=== PATIENT | female | born 1975 | race Caucasian/White ===

== ENCOUNTER → 2017-02-03 | Outpatient (CLI) | payer MEDICAID ==
[2017-02-03 11:01] LABS: Basophils % (A) 1 %; CH 27.9; CHCM 33.6; Eosinophils # (A) 0.1 k/uL (0-0.7); Eosinophils % (A) 1 %; HCT 37.4 % (34.0-46.0); HDW 2.76; HGB 12.4 gm/dL (11.4-16.0); Luc # (Auto) 0.15; Luc % (Auto) 3; Lymphocytes # (A) 1.4 k/uL (1.0-4.8); Lymphocytes % (A) 24 %; MCH 27.8 pg (25.0-35.0); MCHC 33.3 g/dL (31.0-37.0); MCV 83.7 fL (80.0-100.0); Mean Platelet Volume 7.4; Monocytes # (A) 0.3 k/uL (0-1.0); Monocytes % (A) 6 %; Neutrophils % (A) 67 %; RBC 4.47 m/uL (3.80-5.40); RDW 14.1 % (11.5-15.5); WBC (Perox) 6.56
[2017-02-03 11:23] LABS: ALT 25 U/L (9-52); AST 18 U/L (14-36); Alkaline Phosphatase 71 U/L (38-126); Anion Gap 9 mmol/L; Blood Urea Nitrogen 15 mg/dL (7-17); Calcium 9.2 mg/dL (8.4-10.2); Carbon Dioxide 24 mmol/L (22-30); Chloride 108 mmol/L (98-107); Cholesterol 157 mg/dL (<200); Glucose 81 mg/dL (74-99); HDL Cholesterol 46 mg/dL (40-60); Magnesium 2.2 mg/dL (1.6-2.3); Non-African American GFR(MDRD) >60 (>60 ml/min/1.73 sqM); Potassium 4.1 mmol/L (3.5-5.1); Sodium 141 mmol/L (137-145); Total Protein 7.6 g/dL (6.3-8.2); Triglycerides 51 mg/dL (<150)
[2017-02-03 13:16] LABS: Hemoglobin A1C 4.9 % (4.2-6.1)
== END | disposition home or self-care (01) ==
LOC: LABWHC1 10:02
PROVIDERS: ATTEND Family Medicine
DX: Z00.00 Encounter for general adult medical examination without abnormal findings (principal)
CPT/HCPCS: 36415; 80053; 80061; 82306; 83036; 83735; 84443; 85025

== ENCOUNTER → 2017-08-25 | Outpatient (CLI) | payer MEDICAID ==
[2017-08-25 15:58] LABS: Anion Gap 11 mmol/L; Blood Urea Nitrogen 22 mg/dL (7-17); Calcium 9.4 mg/dL (8.4-10.2); Carbon Dioxide 26 mmol/L (22-30); Chloride 106 mmol/L (98-107); Glucose 82 mg/dL (74-99); Potassium 4.4 mmol/L (3.5-5.1); Sodium 143 mmol/L (137-145)
== END | disposition home or self-care (01) ==
LOC: LABWHC1 14:36
PROVIDERS: ATTEND Family Medicine
DX: E55.9 Vitamin D deficiency, unspecified (principal); I10 Essential (primary) hypertension; Z80.9 Family history of malignant neoplasm, unspecified
CPT/HCPCS: 36415; 80048; 82306

== ENCOUNTER → 2017-09-28 | Outpatient (CLI) | payer MEDICAID ==
[2017-09-28 16:26] LABS: Basophils % (A) 1 %; Eosinophils # (A) 0.1 k/uL (0-0.7); Eosinophils % (A) 2 %; HCT 37.2 % (34.0-46.0); HGB 11.8 gm/dL (11.4-16.0); Lymphocytes # (A) 1.9 k/uL (1.0-4.8); Lymphocytes % (A) 31 %; MCH 27.2 pg (25.0-35.0); MCHC 31.7 g/dL (31.0-37.0); Mean Platelet Volume 7.2; Monocytes # (A) 0.4 k/uL (0-1.0); Monocytes % (A) 6 %; Neutrophils # (A) 3.5 k/uL (1.3-7.7); Neutrophils % (A) 57 %; Platelet Count 310 k/uL (150-450); RBC 4.32 m/uL (3.80-5.40); RDW 14.3 % (11.5-15.5); WBC 6.1 k/uL (3.8-10.6)
== END | disposition home or self-care (01) ==
LOC: LABPAT 15:52
PROVIDERS: ATTEND Obstetrics & Gynecology Obstetrics
DX: Z01.812 Encounter for preprocedural laboratory examination (principal); Z01.818 Encounter for other preprocedural examination; I10 Essential (primary) hypertension; N92.0 Excessive and frequent menstruation with regular cycle
CPT/HCPCS: 36415; 85025; 93005

== ENCOUNTER 2017-10-05 08:26 | Day surgery (SDC) | payer MEDICAID ==
[2017-09-28 09:48] VITALS: BMI 36.9
--- NOTE | 2017-10-04 16:03 | P.HPOB ---
History of Present Illness H&P Date: 10/04/17 Chief Complaint: menorrhagia This is a 42yo female G0 that presents with c/o HMB. she notes her menses to be q 28 days lasting 5 days with a heavy flow. + clots. normal pelvic ultrasound obtained on August Review of Systems Constitutional: Reports fatigue Cardiovascular: Reports high blood pressure Respiratory: Denies cough, Denies dyspnea Gastrointestinal: Denies constipation, Denies diarrhea Genitourinary: Reports menorrhagia Menstruation: Reports menses 1-7 days Past Medical History Past Medical History: Hypertension, Musculoskeletal Disorder Additional Past Medical History / Comment(s): Hx of gall stones, kidney stones , back pain/herniated disc, Menorrhagia History of Any Multi-Drug Resistant Organisms: None Reported Past Surgical History: Orthopedic Surgery Additional Past Surgical History / Comment(s): rt knee arthroscopy, lasik surgery eyes Past Anesthesia/Blood Transfusion Reactions: No Reported Reaction Smoking Status: Never smoker - Past Family History Mother Family Medical History: No Reported History Medications and Allergies Home Medications Medication Instructions Recorded Confirmed Type Cyclobenzaprine [Flexeril] 10 mg PO TID PRN 05/31/15 09/28/17 History Ibuprofen [Motrin] 800 mg PO Q8HR PRN #30 tab 05/31/15 09/28/17 Rx Vitamin B Complex 1 each PO DAILY 02/21/16 09/28/17 History Lisinopril [Zestril] 10 mg PO DAILY 09/28/17 09/28/17 History Magnesium 200 mg PO DAILY 09/28/17 09/28/17 History Allergies Allergy/AdvReac Type Severity Reaction Status Date / Time No Known Allergies Allergy Verified 09/28/17 09:39 Exam Osteopathic Statement: *. No significant issues noted on an osteopathic structural exam other than those noted in the History and Physical/Consult. - OBG Physical Exam Abdomen: bowel sounds normal Cervix: normal in appearence no lesions Uterus: normal size Adnexa: both: normal Assessment and Plan (1) Menorrhagia Status: Acute Code(s): N92.0 - EXCESSIVE AND FREQUENT MENSTRUATION WITH REGULAR CYCLE SNOMED Code(s): 005016778 Plan: Plan H DC EA. this is discussed in detail and questions answered informed consent obtained Time with Patient: Less than 30
[~2017-10-05 08:26] MED LIST: DEXAMETHASONE SOD PHOSPHATE 10 MG/ML 1 ML VIAL IV ONE; LACTATED RINGERS 1,000 ML IV SCH; MIDAZOLAM 2 MG/2 ML VIAL IV PRN; MORPHINE SULFATE 4 MG/ML SYRINGE IV PRN; ONDANSETRON 4 MG/2 ML VIAL IVP ONE; Pre Op ABX Message 1 EACH MISC MISCELLANE ONE; SCOPOLAMINE 1.5MG/72HR PATCH TRANSDERM ONE
[2017-10-05] MEDS ORDERED: LIDOCAINE 1% 20 ML VIAL (10MG/ML) FOR IV START INTRADERMA ONE (09:44)
[2017-10-05 09:46] VITALS: RESP 16
[2017-10-05] MEDS ORDERED: MIDAZOLAM 2 MG/2 ML VIAL ONE (10:22)
[2017-10-05] MEDS ORDERED: KETOROLAC 30 MG/ML 1 ML VIAL ONE (10:22)
[2017-10-05] MEDS ORDERED: fentaNYL (PF) 50 MCG/ML 2 ML AMP ONE (10:22)
[2017-10-05] MEDS ORDERED: LIDOCAINE 1% INJ 10MG/ML (20 ML MDV) ONE (10:22)
[2017-10-05] MEDS ORDERED: PROPOFOL 10 MG/ML 20 ML VIAL IV ONE (10:22)
--- NOTE | 2017-10-05 10:50 | P.OP ---
Date of Procedure: 10/05/17 Preoperative Diagnosis: Menorrhagia Postoperative Diagnosis: Same plus endometrial polyps Procedure(s) Performed: Hysteroscopy, dilation and curettage, endometrial ablation, NovaSure Anesthesia: MAC Surgeon: Oliva Christina Estimated Blood Loss (ml): 5 IV fluids (ml): 450 Urine output (ml): 100 Pathology: other (Endometrial curettings) Condition: stable Disposition: PACU Indications for Procedure: Heavy menstrual bleeding Operative Findings: Normal appearing and intraoral cavity with numerous endometrial polyps Description of Procedure: Patient was taken to the operating room and general anesthesia was obtained by the anesthesia department. She was then prepped and draped in normal sterile fashion in the dorsal lithotomy position went over There was any straining the bladder of clear yellow urine. A weighted speculum was placed in the posterior vaginal vault the anterior lip of the cervix was visualized and grasped with a single-tooth tenaculum. The endocervical canal was then dilated to 18-[place]ank[place] hysteroscope was placed through the cervix and for the endometrial cavity the above-noted findings were visualized. A sharp curettage was then performed until a gritty texture was noted in all 4 quadrants of the uterine cavity. The NovaSure device was then opened and set to the patient's uterine measurements 4 cm of length, 4.6, power of 101, total time of 118 seconds. After the cycle was complete the NovaSure device was removed without difficulty, in addition the patient did pass cavity assessment prior to the ablation procedure. Counts are correct 2 patient tolerated procedure well and was taken to room awake and in stable condition
[2017-10-05 11:02] VITALS: TEMP 98.2
[2017-10-05 11:48] VITALS: BP 161/90; PULSE 68
== END 2017-10-05 12:12 | disposition home or self-care (01) ==
LOC: OR 08:26
PROVIDERS: ATTEND Obstetrics & Gynecology Obstetrics
DX: N84.0 Polyp of corpus uteri (principal); N92.0 Excessive and frequent menstruation with regular cycle; I10 Essential (primary) hypertension; Z79.899 Other long term (current) drug therapy
CPT/HCPCS: 81025; 88305; 58563; J2250; J1100; J2405; J2001; J3010; J1885; J2704

== ENCOUNTER → 2017-10-14 | Outpatient (CLI) | payer MEDICAID ==
--- NOTE | 2017-10-15 14:06 | MM ---
Reason for exam: screening (asymptomatic). Last mammogram was performed 1 year and 5 months ago. History: Family history of breast cancer in maternal grandmother. Physical Findings: A clinical breast exam by your physician is recommended on an annual basis and results should be correlated with mammographic findings. MG 3D Screening Mammo W/Cad Bilateral CC and MLO view(s) were taken. Prior study comparison: May 12, 2016, bilateral MG 3d screening mammo w/cad. June 21, 2012, bilateral digital screening mammo w/CAD. The breast tissue is heterogeneously dense. This may lower the sensitivity of mammography. No suspicious abnormality. No significant changes when compared with prior studies. ASSESSMENT: Negative, BI-RAD 1 RECOMMENDATION: Routine screening mammogram of both breasts in 1 year.
== END | disposition home or self-care (01) ==
LOC: RADMAMWWP 09:13
PROVIDERS: ATTEND Obstetrics & Gynecology Obstetrics
DX: Z12.31 Encounter for screening mammogram for malignant neoplasm of breast (principal)
CPT/HCPCS: 77063; 77067

== ENCOUNTER → 2018-01-27 | Outpatient (CLI) | payer MEDICAID ==
[2018-01-27 15:06] LABS: HCT 38.9 % (34.0-46.0); HGB 13.2 gm/dL (11.4-16.0); MCH 28.3 pg (25.0-35.0); MCHC 33.9 g/dL (31.0-37.0); MCV 83.6 fL (80.0-100.0); Mean Platelet Volume 7.2; Platelet Count 273 k/uL (150-450); RBC 4.66 m/uL (3.80-5.40); RDW 15.1 % (11.5-15.5); WBC 7.4 k/uL (3.8-10.6)
[2018-01-27 15:23] LABS: Appearance,Urine Clear (Clear); Bilirubin,Urine Negative (Negative); Blood,Urine Negative (Negative); Color,Urine Yellow; Glucose,Urine (UA) Negative (Negative); Ketones,Urine 1+ (Negative); Leukocyte Esterase,Urine Negative (Negative); Nitrite,Urine Negative (Negative); PH, Urine 5.5 (5.0-8.0); Protein,Urine Negative (Negative); Specific Gravity,Urine 1.022 (1.001-1.035); Urobilinogen,Urine <2.0 mg/dL (<2.0)
[2018-01-27 15:25] LABS: ALT 36 U/L (9-52); AST 22 U/L (14-36); Albumin 4.5 g/dL (3.5-5.0); Alkaline Phosphatase 68 U/L (38-126); Anion Gap 13 mmol/L; Blood Urea Nitrogen 14 mg/dL (7-17); Calcium 9.6 mg/dL (8.4-10.2); Carbon Dioxide 24 mmol/L (22-30); Chloride 105 mmol/L (98-107); Cholesterol 171 mg/dL (<200); Glucose 83 mg/dL (74-99); HDL Cholesterol 58 mg/dL (40-60); LDL Cholesterol,Calculated 101 mg/dL (0-99); Potassium 4.3 mmol/L (3.5-5.1); Sodium 142 mmol/L (137-145); Total Bilirubin 0.8 mg/dL (0.2-1.3); Total Protein 7.5 g/dL (6.3-8.2); Triglycerides 59 mg/dL (<150)
[2018-01-27 15:41] LABS: T4, Free (Free Thyroxine) 1.57 ng/dL (0.78-2.19)
== END | disposition home or self-care (01) ==
LOC: LABWHC1 14:41
PROVIDERS: ATTEND Family Medicine
DX: I10 Essential (primary) hypertension (principal); E55.9 Vitamin D deficiency, unspecified; E66.01 Morbid (severe) obesity due to excess calories
CPT/HCPCS: 36415; 80053; 80061; 81003; 82306; 83036; 84439; 84443; 85027; 87086

== ENCOUNTER → 2018-08-18 | Outpatient (CLI) | payer MEDICAID ==
[2018-08-18 15:53] LABS: Anion Gap 9.2 mmol/L (4.00-12.00); Calcium 8.9 mg/dL (8.7-10.3); Carbon Dioxide 25.8 mmol/L (21.6-31.8); Potassium 4.3 mmol/L (3.5-5.5)
== END ==
LOC: LABWHC1 10:51
PROVIDERS: ATTEND Family Medicine
DX: I10 Essential (primary) hypertension (principal); E55.9 Vitamin D deficiency, unspecified
CPT/HCPCS: 36415; 80048; 82306

== ENCOUNTER → 2019-01-13 | Outpatient (CLI) | payer MEDICAID ==
--- NOTE | 2019-01-14 13:24 | US ---
EXAMINATION TYPE: US abdomen limited DATE OF EXAM: 01/13/2019 COMPARISON: Previous exam 04/18/2014 ultrasound kidneys CLINICAL HISTORY: RUQ Pain R10.11. EXAM MEASUREMENTS: Liver Length: 14.9 cm Gallbladder Wall: 0.2 cm CBD: 0.4 cm Right Kidney: 11.8 x 3.9 x 5.1 cm Pancreas: Tail obscured by overlying bowel gas, otherwise wnl Liver: wnl Gallbladder: cholelithiasis, echogenic foci within the gallbladder are present with shadowing. There is no gallbladder wall thickening or pericholecystic fluid. Evidence for sonographic Thornton's sign: no CBD: wnl Right Kidney: wnl There is no ascites. IMPRESSION: Cholelithiasis is again noted.
== END | disposition home or self-care (01) ==
LOC: RADUSWWP 16:53
PROVIDERS: ATTEND Radiology Diagnostic Radiology
DX: K80.20 Calculus of gallbladder without cholecystitis without obstruction (principal)
CPT/HCPCS: 76705

== ENCOUNTER → 2019-01-24 | Outpatient (CLI) | payer MEDICAID ==
--- NOTE | 2019-01-24 13:52 | MM ---
Reason for exam: screening (asymptomatic). Last mammogram was performed 1 year and 3 months ago. History: Family history of breast cancer in maternal grandmother. Physical Findings: A clinical breast exam by your physician is recommended on an annual basis and results should be correlated with mammographic findings. MG 3D Screening Mammo W/Cad Bilateral CC and MLO view(s) were taken. Prior study comparison: October 14, 2017, bilateral MG 3d screening mammo w/cad. May 12, 2016, bilateral MG 3d screening mammo w/cad. The breast tissue is heterogeneously dense. This may lower the sensitivity of mammography. No suspicious abnormality on the right. Posterior depth left asymmetry on 3D views. ASSESSMENT: Incomplete: need additional imaging evaluation, BI-RAD 0 RECOMMENDATION: Special view mammogram of the left breast. If lesion persists on supplemental views, image directed ultrasound is recommended. [facility] will attempt to contact patient to return for supplemental views and ultrasound if indicated.
== END ==
LOC: RADMAMWWP 07:31
PROVIDERS: ATTEND Obstetrics & Gynecology Obstetrics
DX: Z12.31 Encounter for screening mammogram for malignant neoplasm of breast (principal); Z80.3 Family history of malignant neoplasm of breast
CPT/HCPCS: 77063; 77067

== ENCOUNTER → 2019-01-26 | Outpatient (CLI) | payer MEDICAID ==
--- NOTE | 2019-01-27 12:17 | MM ---
Reason for exam: additional evaluation requested from abnormal screening. Last mammogram was performed less than 1 month ago. History: Family history of breast cancer in maternal grandmother. Physical Findings: Nurse did not find any significant physical abnormalities on exam. MG 3D Work Up W/Cad LT Spot compression CC and ML view(s) were taken of the left breast. Prior study comparison: January 24, 2019, bilateral MG 3d screening mammo w/cad. October 14, 2017, bilateral MG 3d screening mammo w/cad. The breast tissue is heterogeneously dense. This may lower the sensitivity of mammography. The previously seen abnormality resolves on additional views and appears as fibroglandular tissue compatible with summation. These results were verbally communicated with the patient and result sheet given to the patient on 01/26/19. ASSESSMENT: Benign, BI-RAD 2 RECOMMENDATION: Return to routine screening mammogram schedule for both breasts.
== END | disposition home or self-care (01) ==
LOC: RADMAMWWP 13:38
PROVIDERS: ATTEND Obstetrics & Gynecology Obstetrics
DX: R92.8 Other abnormal and inconclusive findings on diagnostic imaging of breast (principal)
CPT/HCPCS: 77061; 77065

== ENCOUNTER → 2019-02-21 | Outpatient (CLI) | payer MEDICAID ==
[2019-02-21 12:02] LABS: Appearance,Urine Cloudy (Clear); Bacteria,Urine Rare /hpf; Bilirubin,Urine Negative (Negative); Blood,Urine Small (Negative); Color,Urine Yellow; Glucose,Urine (UA) Negative (Negative); Ketones,Urine Negative (Negative); Leukocyte Esterase,Urine Moderate (Negative); Mucus,Urine Many /hpf; Nitrite,Urine Negative (Negative); PH, Urine 5.5 (5.0-8.0); Protein,Urine Trace (Negative); RBC,Urine 7 /hpf (0-5); Specific Gravity,Urine 1.028 (1.001-1.035); Squamous Epithelial Cell,Urine 12 /hpf (0-4); Urobilinogen,Urine <2.0 mg/dL (<2.0); WBC,Urine 9 /hpf (0-5)
[2019-02-21 16:30] LABS: ALT 17 U/L (8-44); AST 16 U/L (13-35); African American GFR (CKD) 105.4 (60.0-200.0); Albumin/Globulin Ratio 1.64 (1.60-3.17); Alkaline Phosphatase 72 U/L (41-126); BUN/Creat Ratio 16.25 Ratio (12.00-20.00); Calcium 9.3 mg/dL (8.7-10.3); Carbon Dioxide 25.9 mmol/L (21.6-31.8); Chloride 108 mmol/L (96-109); Cholesterol 163 mg/dL (0-200); Globulin 2.5 g/dL (1.6-3.3); Glucose 91 mg/dL (70-110); Potassium 4.2 mmol/L (3.5-5.5); Sodium 142 mmol/L (135-145); Total Bilirubin 0.5 mg/dL (0.3-1.2); Total Protein 6.6 g/dL (6.2-8.2); Triglycerides <50.0 mg/dL (0.0-149.0); VLDL Calculation 9.98 mg/dL (5.00-40.00)
[2019-02-21 19:10] LABS: Hemoglobin A1C 5.2 % (4.0-6.0)
== END | disposition home or self-care (01) ==
LOC: LABWHC1 10:53
PROVIDERS: ATTEND Surgery
DX: Z00.00 Encounter for general adult medical examination without abnormal findings (principal); K81.1 Chronic cholecystitis
CPT/HCPCS: 36415; 80053; 80061; 81001; 83036; 84443

== ENCOUNTER → 2019-02-21 | Outpatient (CLI) | payer MEDICAID ==
[2019-02-21 11:49] LABS: Basophils % (A) 1 %; Eosinophils # (A) 0.1 k/uL (0-0.7); Eosinophils % (A) 3 %; HGB 13.4 gm/dL (11.4-16.0); Lymphocytes # (A) 1.4 k/uL (1.0-4.8); Lymphocytes % (A) 31 %; MCH 28.5 pg (25.0-35.0); Mean Platelet Volume 7.6; Monocytes # (A) 0.2 k/uL (0-1.0); Monocytes % (A) 5 %; Neutrophils # (A) 2.7 k/uL (1.3-7.7); Neutrophils % (A) 58 %; Platelet Count 269 k/uL (150-450); RBC 4.72 m/uL (3.80-5.40); RDW 14.8 % (11.5-15.5); WBC 4.6 k/uL (3.8-10.6)
== END | disposition home or self-care (01) ==
LOC: LABPAT 10:51
PROVIDERS: ATTEND Obstetrics & Gynecology Obstetrics
DX: Z01.818 Encounter for other preprocedural examination (principal); Z01.812 Encounter for preprocedural laboratory examination; N94.6 Dysmenorrhea, unspecified; I10 Essential (primary) hypertension; N92.0 Excessive and frequent menstruation with regular cycle
CPT/HCPCS: 85025; 86850; 86900; 86901; 87077; 87086; 87186; 93005

== ENCOUNTER 2019-02-28 06:00 | Day surgery (SDC) | payer MEDICAID ==
[2019-02-20 14:40] VITALS: BMI 39.9
--- NOTE | 2019-02-27 14:20 | HP ---
HISTORY AND PHYSICAL DATE OF SURGERY: 02/28/2019. HISTORY OF PRESENT ILLNESS: This is a very pleasant 43-year-old 0, who presents with complaints of irregular menses and severe dysmenorrhea despite having an endometrial ablation. Patient's menses are noted to be irregular and she notes severe dysmenorrhea associated with her cycle. The patient is sexually active but not on contraception. PAST MEDICAL HISTORY: 1. Gallstones. 2. Kidney stones. 3. Hypertension. PAST SURGICAL HISTORY: Arthroscopy in 1992, hysteroscopy with endometrial ablation in September of 2017 and LASIK eye surgery done in 2004. MEDICATIONS: She is on lisinopril 10 mg daily. Magnesium and vitamin D3. She has no known drug allergies. FAMILY HISTORY: Noncontributory. REPRODUCTIVE HISTORY: As stated above. She is a 0. Her menstrual cycles are noted to be irregular in nature. SOCIAL HISTORY: She denies tobacco or illicit drug use. She admits to moderate alcohol use. She denies fevers or chills. No headaches. She denies nausea, vomiting, diarrhea, constipation. She does note irregular menses and severe dysmenorrhea. She denies urinary urgency, frequency, incontinence. PHYSICAL EXAM: Noted to be stable. In general, this is a well-nourished, well-developed female in no acute distress. Her heart is noted to have a rate and rhythm. Her breathing is nonlabored and lungs are clear to auscultation bilaterally. Her abdomen is soft and nontender to palpation. Genitourinary, her external genitalia is normal for age. No discharge or lesions are noted. It is noted to be pink and rugated with no masses or lesions. The bladder is noted to be nontender. The cervix is noted to be in normal appearance with no lesions. Her uterus is nontender and mobile and approximately 8 weeks' size. There are no masses palpated. ASSESSMENT: 1. Irregular menses. 2. 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 No change in menses/dysmenorrhea. She does desire definitive treatment with hysterectomy. PLAN: She elected to treatment with robotic-assisted vaginal hysterectomy and ovarian conservation given her age. Reviewed in detail. The risks were reviewed including, but not limited to infection, bleeding, damage to bladder, bowel, or other pelvic structures. Patient states understanding and wishes to proceed. Will plan robotic vaginal hysterectomy with possible bilateral salpingo-oophorectomy should the need arise, possible procedure, possible diagnostic cystoscopy. MMODL / IJN: [id number] /
[~2019-02-28 06:00] MED LIST changes: +ACETAMINOPHEN TAB 500 MG TAB PO ONE; +HYDROmorphone 0.5 MG/0.5 ML SYRINGE IVP PRN; -LACTATED RINGERS 1,000 ML IV SCH; -MORPHINE SULFATE 4 MG/ML SYRINGE IV PRN; -ONDANSETRON 4 MG/2 ML VIAL IVP ONE; -Pre Op ABX Message 1 EACH MISC MISCELLANE ONE; +ceFAZolin 3 GM in SODIUM CHLORIDE 0.9% 100 ML IVPB ONE
[2019-02-28] MEDS: LACTATED RINGERS 1,000 ML IV SCH ×2 (06:46→12:40)
[2019-02-28] MEDS ORDERED: LIDOCAINE 1% 20 ML VIAL (10MG/ML) FOR IV START INTRADERMA ONE (06:47)
[2019-02-28] MEDS: ONDANSETRON 4 MG/2 ML VIAL IVP ONE ×2 (06:50→10:18)
[2019-02-28] MEDS ORDERED: PROPOFOL 10 MG/ML 20 ML VIAL IV ONE (07:34)
[2019-02-28] MEDS ORDERED: MIDAZOLAM 2 MG/2 ML VIAL ONE (07:34)
[2019-02-28] MEDS ORDERED: fentaNYL (PF) 50 MCG/ML 2 ML AMP ONE (07:34)
[2019-02-28] MEDS ORDERED: HYDROmorphone (PF) 1 MG/ML ONE (07:34)
[2019-02-28] MEDS ORDERED: NEOSTIGMINE 1 MG/ML 10 ML VIAL ONE (07:34)
[2019-02-28] MEDS ORDERED: GLYCOPYRROLATE 0.2 MG/ML 2 ML VIAL ONE (07:34)
[2019-02-28] MEDS ORDERED: LIDOCAINE 1% INJ 10MG/ML (20 ML MDV) ONE (07:34)
[2019-02-28] MEDS ORDERED: ROCURONIUM BROMIDE 10 MG/ML 10 ML VIAL IV ONE (07:34)
[2019-02-28] MEDS ORDERED: Acetaminophen-Codeine 300-30mg TAB PO PRN (07:51)
[2019-02-28] MEDS ORDERED: LACTATED RINGERS 1,000 ML IV ONE ×2 (08:38)
[2019-02-28] MEDS ORDERED: BUPIVACAINE (PF) 0.25% 30 ML VIAL SQ ONE (08:47)
[2019-02-28] MEDS ORDERED: IBUPROFEN IV 800 MG in SODIUM CHLORIDE 0.9% 250 ML IV ONE (09:36)
--- NOTE | 2019-02-28 09:50 | P.OP ---
Date of Procedure: 02/28/19 Preoperative Diagnosis: Menorrhagia, dysmenorrhea, failed endometrial ablation Postoperative Diagnosis: Same plus endometriosis Procedure(s) Performed: Robotic-assisted vaginal hysterectomy with bilateral salpingectomy, diagnostic cystoscopy Anesthesia: TITUS Surgeon: Oliva Christina Woven Label Designer #1: Camila Rudolph Estimated Blood Loss (ml): 20 IV fluids (ml): 1,500 Urine output (ml): 800 Pathology: other (Uterus cervix bilateral fallopian tubes) Condition: stable Disposition: PACU Indications for Procedure: Failed endometrial ablation with increasing menorrhagia and dysmenorrhea symptoms Operative Findings: Globular uterus with endometrial implants on bilateral fallopian tubes normal ovaries bilaterally. Description of Procedure: Patient is seen in the preoperative area and informed consent is obtained. Patient is counseled on the risks of surgery including but not limited to infection, bleeding, damage to bladder, bowel, ureteric or other pelvic structures. Patient states understanding and wishes to proceed. Patient was taken back to the operating suite where general anesthesia was obtained without difficulty by the anesthesia department. She was then prepped and draped in the normal sterile fashion in the dorsal lithotomy position. Giraldo catheter was then placed under sterile technique. The endocervical canal was then dilated and a Glazeon uterine manipulator was advanced into the endometrial cavity as a means to manipulate the uterus throughout the procedure. The cervical cap was placed snugly against the cervix and all instruments were removed from the vaginal vault at this time. Patient was then turned to the patient's abdomen where approximately 2 finger breaths above the umbilicus a small skin incision is made. Through this incision the Veress needle is placed. Once the Veress needle was deemed to be in the appropriate position with a drop of CO2 pressure with insufflation of CO2 gas CO2 insufflation was allowed to occur. Proximally 3 L of gas were used to obtain pneumoperitoneum. At this time the additional port sites are placed at 10 cm lateral and 3 cm inferior to the midline port these are operative ports and placed under direct visualization. At this time the left upper quadrant therapy administrative assistant port is placed this is a 12 mm port placed under direct visualization. At this time the da Irving robot was docked in the usual fashion in the operative arms are placed in the left operative arm the monopolar scissors is placed, and the right operative arm the bipolar forceps is placed. Attention was then turned to the patient's left fallopian tube which was grasped and mesosalpinx was coagulated and transected through the uterine ovarian ligament was visualized regular distally and proximal plane divided. This continued through the broad and toward the round which was coagulated distally and proximally divided. The bladder flap was then created using sharp and blunt dissection. Attention was then turned the patient's right fallopian tube which was grasped ligament through the mesosalpinx and transected. Hemostasis was appreciated. The uterine ovarian ligament was visualized coagulated distally and proximal plane divided. This continued through the broad and toward the round which was coagulated and transected. The bladder flap from the right was then created using sharp and blunt dissection. The ascending branch of the uterine artery from the right was visualized coagulated and transected. This was then repeated on the opposite side with good hemostasis being appreciated on both sides. At this time a Ray-Brenton was placed into the abdomen is means to bluntly dissect the bladder away from the operating field. This Ray-Brenton was then removed. At this time the only remaining attachment was a vaginal attachment therefore the colpotomy incision was made in a circumferential fashion. The uterus and fallopian tubes were then delivered through the vaginal opening. The pelvis was then copiously irrigated hemostasis was appreciated and the vaginal cuff was closed with multiple [id number] sutures of 0 Vicryl. The right ureter was noted to be pulsating in a normal f ashion. The left was obscured by bowel. The vaginal cuff was inspected hemostasis was appreciated once again. All instrument and then removed and the da Irving robot was undocked in usual fashion. Attention was then turned the patient's Giraldo catheter which was removed without difficulty and a cystoscopy was performed. This was placed through the urethra and toward the bladder bladder bubbles noted both ureteral orifices were noted to be spilling clear yellow urine. A complete survey of the bladder revealed normal mucosa with no defects. Cystoscope was removed and the Giraldo catheter was then replaced. Attention was then turned to the patient's abdomen where the skin incisions were closed with 4-0 Vicryl in a subcuticular fashion. Steri-Strips and sterile dressings were applied. On inspection the patient's vaginal vault after the abdominal incisions were closed and long laceration was noted this was repaired with 3-0 Rapide. Hemostasis was appreciated after repair. All counts were correct 2 patient tolerated procedure well and is taken to recovery awake in stable condition.
[2019-02-28] MEDS ORDERED: PROMETHAZINE INJ 25 MG/ML 1 ML VIAL IVPB ONE (10:25)
[2019-02-28] MEDS ORDERED: diphenhydrAMINE 50 MG/ML 1 ML VIAL IVP ONE (10:48)
[2019-02-28 16:57] VITALS: RESP 16
[2019-02-28] MEDS: SENNOSIDES-DOCUSATE SODIUM 1 EACH TAB PO SCH (20:28)
[2019-03-01 06:50] LABS: Basophils % (A) 0 %; Eosinophils % (A) 0 %; HCT 40.5 % (34.0-46.0); HGB 12.9 gm/dL (11.4-16.0); Lymphocytes # (A) 2.8 k/uL (1.0-4.8); Lymphocytes % (A) 22 %; MCHC 31.9 g/dL (31.0-37.0); MCV 87.6 fL (80.0-100.0); Monocytes # (A) 0.8 k/uL (0-1.0); Monocytes % (A) 6 %; Neutrophils # (A) 8.9 k/uL (1.3-7.7); Neutrophils % (A) 70 %; Platelet Count 311 k/uL (150-450); RBC 4.62 m/uL (3.80-5.40); RDW 13.7 % (11.5-15.5); WBC 12.7 k/uL (3.8-10.6)
[2019-03-01] MEDS: SENNOSIDES-DOCUSATE SODIUM 1 EACH TAB PO SCH (08:08)
[2019-03-01] MEDS: Acetaminophen-Codeine 300-30mg TAB PO PRN ×2 (08:09→11:18)
[2019-03-01 08:18] VITALS: BP 138/69; PULSE 69; TEMP 97.8
--- NOTE | 2019-03-01 08:25 | P.DS ---
Providers Date of admission: 02/28/2019 Expected date of discharge: 03/01/19 Attending physician: Oliva Christina Primary care physician: Sukhwinder Benitez - Discharge Diagnosis(es) (1) Dysmenorrhea Current Visit: Yes Status: Acute (2) Menorrhagia Current Visit: No Status: Acute Hospital Course: This is a pleasant 43-year-old 0 that presented to the hospital for admission secondary to menorrhagia, dysmenorrhea and failed endometrial ablation. Patient desired definitive treatment for robotic-assisted vaginal hysterectomy. Patient was taken to the operating suite surgery was performed without difficulty. On this postop day #1 she is ambulating and voiding without difficulty. She is tolerating a regular diet without nausea or vomiting. She states her pain is well-controlled with oral Tylenol No. 3. She only notes scant vaginal bleeding. Patient Condition at Discharge: Good Plan - Discharge Summary Discharge Rx Participant: Yes New Discharge Prescriptions: No Action Lisinopril [Zestril] 10 mg PO DAILY Magnesium 200 mg PO DAILY Vit K 2,400 mcg PO DAILY Discharge Medication List Lisinopril [Zestril] 10 mg PO DAILY 09/28/17 [History] Magnesium 200 mg PO DAILY 09/28/17 [History] Vit K 2,400 mcg PO DAILY 02/20/19 [History] Follow up Appointment(s)/Referral(s): Oliva Christina DO [Doctor of Osteopathic Medicine] - 2 Weeks Patient Instructions/Handouts: Laparoscopic Hysterectomy (DC), Laparoscopic Hysterectomy (GEN)
== END 2019-03-01 11:20 | disposition home or self-care (01) ==
LOC: OR 06:00 → 4FBP 09:32 → OR 03-01 11:20
PROVIDERS: ATTEND Obstetrics & Gynecology Obstetrics
DX: N92.1 Excessive and frequent menstruation with irregular cycle (principal); N94.6 Dysmenorrhea, unspecified; D25.1 Intramural leiomyoma of uterus; N80.2 Endometriosis of fallopian tube; K80.10 Calculus of gallbladder with chronic cholecystitis without obstruction; I10 Essential (primary) hypertension; Z79.899 Other long term (current) drug therapy; Z87.442 Personal history of urinary calculi
CPT/HCPCS: 58552; S2900; 81025; 85025; 86850; 86900; 86901; 88307

== ENCOUNTER 2019-03-15 06:36 | Day surgery (SDC) | payer MEDICAID ==
[2019-03-10 09:30] VITALS: BMI 39.9
[~2019-03-15 06:36] MED LIST changes: -ACETAMINOPHEN TAB 500 MG TAB PO ONE; +HEPARIN SODIUM,PORCINE 5,000 UNIT/ML 1 ML VIAL SQ ONE; -HYDROmorphone 0.5 MG/0.5 ML SYRINGE IVP PRN; +LACTATED RINGERS 1,000 ML IV SCH; +LIDOCAINE 1% 20 ML VIAL (10MG/ML) FOR IV START INTRADERMA PRN; -MIDAZOLAM 2 MG/2 ML VIAL IV PRN; +ONDANSETRON 4 MG/2 ML VIAL IVP ONE; -SCOPOLAMINE 1.5MG/72HR PATCH TRANSDERM ONE; +fentaNYL (PF) 50 MCG/ML 2 ML AMP IV PRN
[2019-03-15] MEDS ORDERED: SCOPOLAMINE 1.5MG/72HR PATCH TRANSDERM ONE (07:05)
[2019-03-15] MEDS ORDERED: ROCURONIUM BROMIDE 10 MG/ML 10 ML VIAL IV ONE (07:38)
[2019-03-15] MEDS ORDERED: fentaNYL (PF) 50 MCG/ML 2 ML AMP ONE (07:38)
[2019-03-15] MEDS ORDERED: LIDOCAINE 1% INJ 10MG/ML (20 ML MDV) ONE (07:38)
[2019-03-15] MEDS ORDERED: NEOSTIGMINE 1 MG/ML 10 ML VIAL ONE (07:38)
[2019-03-15] MEDS ORDERED: GLYCOPYRROLATE 0.2 MG/ML 2 ML VIAL ONE (07:38)
[2019-03-15] MEDS ORDERED: PROPOFOL 10 MG/ML 20 ML VIAL IV ONE (07:38)
[2019-03-15] MEDS ORDERED: KETOROLAC 30 MG/ML 1 ML VIAL ONE (07:38)
[2019-03-15] MEDS ORDERED: MIDAZOLAM 2 MG/2 ML VIAL ONE (07:38)
[2019-03-15] MEDS ORDERED: HYDROmorphone (PF) 1 MG/ML ONE (07:38)
[2019-03-15] MEDS ORDERED: SUCCINYLCHOLINE CHLORIDE 100 MG/5 ML SYR IV ONE (07:38)
[2019-03-15] MEDS ORDERED: LIDOCAINE 0.5%-EPI 1:200,000 50 ML VIAL SQ ONE (07:43)
--- NOTE | 2019-03-15 07:44 | P.GSHP ---
History of Present Illness H&P Date: 03/15/19 Chief Complaint: chronic cholecystitis 43-year-old female with known history of gallstones. Has had intermittent attacks of abdominal pain for the last 4 years or so. Will usually last for a few hours at a time. Occurs every few weeks typically. Mild nausea but no vomiting. Ultrasound confirmed Stones with No Biliary Dilation. Recent Labs Normal. No Change in the Color of Her Skin Urine or Stool. Past Medical History Additional Past Medical History / Comment(s): gall stones, kidney stone, lower back pain radiating to rt buttocks, herniated disc, History of Any Multi-Drug Resistant Organisms: None Reported Past Surgical History: Hysterectomy, Orthopedic Surgery Additional Past Surgical History / Comment(s): rt knee arthroscopy, lasik surgery eyes Past Anesthesia/Blood Transfusion Reactions: Previous Problems w/ Anesthesia, Postoperative Nausea & Vomiting (PONV) Additional Past Anesthesia/Blood Transfusion Reaction / Comment(s): VERY NAUSEOUS AFTER HYST. Smoking Status: Never smoker - Past Family History Mother Family Medical History: No Reported History Medications and Allergies Home Medications Medication Instructions Recorded Confirmed Type Lisinopril [Zestril] 10 mg PO DAILY 09/28/17 03/15/19 History Magnesium 200 mg PO DAILY 09/28/17 03/15/19 History Vit K 2,400 mcg PO DAILY 02/20/19 03/15/19 History Allergies Allergy/AdvReac Type Severity Reaction Status Date / Time No Known Allergies Allergy Verified 03/15/19 06:48 Surgical - Exam Vital Signs Temp Pulse Resp BP Pulse Ox 98.6 F 72 16 144/81 97 03/15/19 06:54 03/15/19 06:54 03/15/19 06:54 03/15/19 06:54 03/15/19 06:54 Physical exam: General: Well-developed, well-nourished HEENT: Normocephalic, sclerae nonicteric Abdomen: Nontender, nondistended, recent scars noted Extremities: No edema Neuro: Alert and oriented Assessment and Plan (1) Chronic cholecystitis Narrative/Plan: Will proceed with laparoscopic cholecystectomy. Risks of bleeding, infection, bile leak, bile duct injury, retained common bile duct stone, trocar injury, conversion to an open procedure, hernia, anesthesia related complications were reviewed. The patient understands and wishes to proceed. Current Visit: Yes Status: Acute Code(s): K81.1 - CHRONIC CHOLECYSTITIS SNOMED Code(s): 04258174
[2019-03-15] MEDS ORDERED: LACTATED RINGERS 1,000 ML IV ONE (08:52)
[2019-03-15] MEDS ORDERED: NALOXONE 0.4 MG/ML 1 ML VIAL IV PRN (08:56)
--- NOTE | 2019-03-15 08:58 | P.OP ---
Date of Procedure: 03/15/19 Procedure(s) Performed: PREOPERATIVE DIAGNOSIS: Chronic cholecystitis POSTOPERATIVE DIAGNOSIS: Same PROCEDURE: Laparoscopic cholecystectomy SURGEON: Gwen EBL: Minimal see anesthesia record ANESTHESIA: Gen. COMPLICATIONS: None OPERATIVE PROCEDURE: The patient was brought and placed on the operating room table in the supine position. The patient was placed under general anesthesia at that time. The abdomen was prepped and draped in the usual sterile fashion. A small vertical infraumbilical incision was made. The fascia was grasped with the Anny forceps. The fascia was retracted anteriorly. The Veress needle was advanced into the peritoneal cavity. The saline drop test was normal. Insufflation took place up to 15 mmHg. A 5 mm optical trocar was advanced and the peritoneal cavity. 2 additional 5 mm trochars were placed in the right upper quadrant under direct visualization. A 12 mm trocar was advanced into the epigastric incision site. The gallbladder was retracted superiorly and laterally. The peritoneum overlying the infundibulum was bluntly dissected. The patient's cystic duct was visualized. The junction between the cystic duct common and hepatic duct was identified. The cystic duct was then divided after placement of 3 12 mm clips on the patient's side and one on the specimen side. The cystic artery was identified and clipped as well. A small vessel was seen along the gallbladder fossa and clipped as well. The gallbladder was then removed from the liver bed using electrocautery. The gallbladder was then removed from the epigastric trocar site with an Endo Catch bag. In order to remove the gallbladder the fascia needed to be lengthened along with our skin incision. The gallbladder fossa was irrigated with saline. There was no evidence of any bleeding or biliary drainage seen. The fascia at the 12 millimeter site was closed using a running 0 Vicryl stitch. The trochars were then removed. The skin at all 4 sites was closed using a 4-0 Monocryl stitch. Skin glue was utilized on the incision sites. At the end of this procedure the sponge and needle counts were correct. DISPOSITION: Stable to the recovery room
[2019-03-15 09:12] VITALS: TEMP 97.1
[2019-03-15] MEDS: HYDROmorphone 0.5 MG/0.5 ML SYRINGE IVP PRN ×2 (09:28→09:35)
[2019-03-15] MEDS ORDERED: Acetaminophen-Codeine 300-30mg TAB PO ONE (10:33)
[2019-03-15 11:48] VITALS: BP 106/65; PULSE 50; RESP 17
== END 2019-03-15 11:50 ==
LOC: OR 06:36
PROVIDERS: ATTEND Surgery
DX: K81.1 Chronic cholecystitis (principal); I10 Essential (primary) hypertension; Z79.899 Other long term (current) drug therapy; Z87.19 Personal history of other diseases of the digestive system; Z87.442 Personal history of urinary calculi; Z90.710 Acquired absence of both cervix and uterus; Z98.890 Other specified postprocedural states
CPT/HCPCS: 47562; J2250; J1644; J1100; J2710; J0690; J2405; J2001; J3010; J1885; J1170 ×2; J0330; J2704; 88304

== ENCOUNTER → 2019-08-14 | Outpatient (CLI) | payer MEDICAID ==
--- NOTE | 2019-08-15 06:28 | XR ---
EXAMINATION TYPE: XR chest 2V DATE OF EXAM: 08/14/2019 COMPARISON: NONE HISTORY: Cough for 4 days. TECHNIQUE: Frontal and lateral views of the chest are obtained. FINDINGS: There is no focal air space opacity, pleural effusion, or pneumothorax seen. The cardiac silhouette size is within normal limits. The osseous structures are intact. Cholecystectomy clips a re noted. IMPRESSION: No suspicious acute infiltrate.
== END | disposition home or self-care (01) ==
LOC: RADXRMAIN 19:32
PROVIDERS: ATTEND Family Medicine
DX: R05 Cough (principal)
CPT/HCPCS: 71046

== ENCOUNTER → 2019-09-20 | Outpatient (CLI) | payer MEDICAID ==
[2019-09-20 11:53] LABS: HGB 13.7 gm/dL (11.4-16.0); MCH 28.2 pg (25.0-35.0); MCHC 31.9 g/dL (31.0-37.0); MCV 88.6 fL (80.0-100.0); Mean Platelet Volume 7.9; Platelet Count 246 k/uL (150-450); RBC 4.85 m/uL (3.80-5.40); RDW 13.4 % (11.5-15.5); WBC 7.5 k/uL (3.8-10.6)
[2019-09-20 19:26] LABS: African American GFR (CKD) 104.7 (60.0-200.0); Anion Gap 9.1 mmol/L (4.00-12.00); Calcium 9.4 mg/dL (8.7-10.3); Carbon Dioxide 23.9 mmol/L (21.6-31.8); Non-African American GFR(CKD) 90.3 (60.0-200.0); Potassium 4.1 mmol/L (3.5-5.5)
[2019-09-20 22:12] LABS: Hemoglobin A1C 4.9 % (4.0-6.0)
== END | disposition home or self-care (01) ==
LOC: LABWHC1 11:04
PROVIDERS: ATTEND Family Medicine
DX: I10 Essential (primary) hypertension (principal); E55.9 Vitamin D deficiency, unspecified; E66.01 Morbid (severe) obesity due to excess calories
CPT/HCPCS: 36415; 80048; 82306; 83036; 85027

== ENCOUNTER 2020-04-27 04:27 | Emergency (ER) | payer MEDICAID ==
[2020-04-27 04:38] VITALS: RESP 18; TEMP 98.1
--- NOTE | 2020-04-27 05:20 | ED ---
Chest Pain HPI - General Chief Complaint: Chest Pain Stated Complaint: Chest Pain Time Seen by Provider: 04/27/20 04:32 Source: patient Mode of arrival: ambulatory - History of Present Illness Initial Comments: 's patient is a 44-year-old woman who presents to be evaluated for left-sided chest pain. The patient states that she had been awakened at approximately 3 AM by a neighbors dog that was barking. She states that she did go and yellow at the dog, and then after that noticed that she was having chest discomfort in the left side of the chest at the anterior axillary line. No associated symptoms. She states that after deciding to come emergency department, the chest pain did resolve. MD Complaint: chest pain Onset/Timin -: hour(s) Onset: during rest Pain Location: left chest Pain Radiation: none Quality: dull Consistency: now resolved Improves With: nothing Worsens With: nothing Treatments Prior to Arrival: none - Related Data Home Medications Medication Instructions Recorded Confirmed Magnesium 200 mg PO DAILY 09/28/17 03/15/19 lisinopriL [Zestril] 10 mg PO DAILY 09/28/17 03/15/19 Vit K 2,400 mcg PO DAILY 02/20/19 03/15/19 Previous Rx's Medication Instructions Recorded Acetaminophen with Codeine 1 tab PO Q4H #10 tab 03/15/19 [Tylenol w/codeine #3] Allergies Allergy/AdvReac Type Severity Reaction Status Date / Time No Known Allergies Allergy Verified 03/15/19 06:48 Review of Systems ROS Statement: Those systems with pertinent positive or pertinent negative responses have been documented in the HPI. ROS Other: All systems not noted in ROS Statement are negative. Constitutional: Denies: fever, chills Respiratory: Denies: cough, dyspnea Cardiovascular: Reports: as per HPI, chest pain. Denies: palpitations, orthopnea, edema, syncope Gastrointestinal: Denies: abdominal pain, nausea, vomiting Genitourinary: Denies: dysuria, hematuria Musculoskeletal: Denies: back pain Skin: Denies: rash Neurological: Denies: headache, weakness EKG Findings - EKG Results: EKG: interpreted by ZULEYKA, sinus rhythm (Rate 68 bpm), normal axis, normal QRS, normal ST/T, no acute changes Past Medical History Additional Past Medical History / Comment(s): gall stones, kidney stone, lower back pain radiating to rt buttocks, herniated disc, hysterectomy, pt states she had her gall bladder removed in 02/2019. History of Any Multi-Drug Resistant Organisms: None Reported Past Surgical History: Orthopedic Surgery Additional Past Surgical History / Comment(s): Right knee arthroscopy in 1992. Pt states she has also had lasic eye surgey in 2004. Past Anesthesia/Blood Transfusion Reactions: No Reported Reaction Past Psychological History: No Psychological Hx Reported Smoking Status: Never smoker Past Alcohol Use History: None Reported Past Drug Use History: None Reported - Past Family History Mother Family Medical History: No Reported History General Exam General appearance: alert, in no apparent distress Head exam: Present: atraumatic, normocephalic Eye exam: Present: normal appearance. Absent: scleral icterus, conjunctival injection ENT exam: Present: normal oropharynx Neck exam: Present: normal inspection, full ROM Respiratory exam: Present: normal lung sounds bilaterally. Absent: respiratory distress, wheezes, rales, rhonchi, stridor, chest wall tenderness, accessory muscle use Cardiovascular Exam: Present: regular rate, normal rhythm, normal heart sounds. Absent: systolic murmur, diastolic murmur, rubs, gallop GI/Abdominal exam: Present: soft. Absent: distended, tenderness, guarding, rebound, rigid, mass Extremities exam: Present: normal inspection, normal capillary refill Back exam: Present: normal inspection. Absent: CVA tenderness (R), CVA tender ness (L) Neurological exam: Present: alert Skin exam: Present: warm, dry, intact, normal color. Absent: rash Course Vital Signs 04/27/20 04/27/20 04:31 05:38 Temperature 98.1 F 98.1 F Pulse Rate 77 61 Respiratory 18 18 Rate Blood Pressure 144/83 122/70 O2 Sat by Pulse 100 97 Oximetry Disposition Clinical Impression: Chest pain Disposition: HOME SELF-CARE Condition: Good Instructions (If sedation given, give patient instructions): Chest Pain (ED) Is patient prescribed a controlled substance at d/c from ED?: No Referrals: Sukhwinder Benitez DO [Primary Care Provider] - 1-2 days
[2020-04-27 05:38] LABS: Basophils # (A) 0.1 k/uL (0-0.2); Basophils % (A) 1 %; Eosinophils # (A) 0.1 k/uL (0-0.7); Eosinophils % (A) 1 %; HCT 42.3 % (34.0-46.0); HGB 13.7 gm/dL (11.4-16.0); Lymphocytes # (A) 3.5 k/uL (1.0-4.8); Lymphocytes % (A) 33 %; MCH 28.2 pg (25.0-35.0); MCHC 32.4 g/dL (31.0-37.0); MCV 87.2 fL (80.0-100.0); Monocytes # (A) 0.7 k/uL (0-1.0); Monocytes % (A) 7 %; Neutrophils # (A) 6.1 k/uL (1.3-7.7); Neutrophils % (A) 57 %; Platelet Count 316 k/uL (150-450); RBC 4.85 m/uL (3.80-5.40); WBC 10.7 k/uL (3.8-10.6)
[2020-04-27 05:39] VITALS: BP 122/70; PULSE 61
[2020-04-27 05:50] LABS: ALT 20 U/L (4-34); AST 21 U/L (14-36); African American GFR (CKD) >90 (>60 ml/min/1.73 sqM); Albumin 3.9 g/dL (3.5-5.0); Alkaline Phosphatase 80 U/L (38-126); Anion Gap 7 mmol/L; Blood Urea Nitrogen 18 mg/dL (7-17); Calcium 9.5 mg/dL (8.4-10.2); Carbon Dioxide 25 mmol/L (22-30); Chloride 107 mmol/L (98-107); Glucose 97 mg/dL (74-99); Magnesium 2.1 mg/dL (1.6-2.3); Non-African American GFR(CKD) >90 (>60 ml/min/1.73 sqM); Potassium 3.7 mmol/L (3.5-5.1); Sodium 139 mmol/L (137-145); Total Bilirubin 0.5 mg/dL (0.2-1.3); Total Protein 6.9 g/dL (6.3-8.2)
[2020-04-27 05:54] LABS: D-Dimer 0.18 mg/L FEU (<0.60); INR 0.9 (<1.2); Partial Thromboplastin Time 23.7 sec (22.0-30.0); Prothrombin Time 9.6 sec (9.0-12.0)
--- NOTE | 2020-04-27 06:12 | XR ---
EXAMINATION TYPE: XR chest 2V DATE OF EXAM: 04/27/2020 COMPARISON: 08/14/2019 HISTORY: Chest pain TECHNIQUE: FINDINGS: Heart and mediastinum are normal. Lungs are clear. Diaphragm is normal. There are chest farhad ds. Bony thorax is intact. IMPRESSION: Normal chest. No change.
== END 2020-04-27 06:31 | disposition home or self-care (01) ==
LOC: EC 04:27
DX: R07.9 Chest pain, unspecified (principal); Z79.899 Other long term (current) drug therapy
CPT/HCPCS: 36415; 71046; 80053; 83735; 84484; 85025; 85379; 85610; 85730; 93005; 99285

== ENCOUNTER → 2020-05-03 | Outpatient (CLI) | payer MEDICAID ==
[2020-05-03 08:23] LABS: Basophils # (A) 0.1 k/uL (0-0.2); Basophils % (A) 1 %; Eosinophils # (A) 0.1 k/uL (0-0.7); Eosinophils % (A) 1 %; HGB 13.1 gm/dL (11.4-16.0); Lymphocytes % (A) 23 %; MCH 28.5 pg (25.0-35.0); MCHC 32.7 g/dL (31.0-37.0); MCV 87.1 fL (80.0-100.0); Mean Platelet Volume 7.8; Monocytes # (A) 0.5 k/uL (0-1.0); Monocytes % (A) 6 %; Neutrophils # (A) 5.8 k/uL (1.3-7.7); Neutrophils % (A) 68 %; Platelet Count 254 k/uL (150-450); RBC 4.59 m/uL (3.80-5.40); RDW 13.5 % (11.5-15.5); WBC 8.6 k/uL (3.8-10.6)
[2020-05-03 08:24] LABS: Appearance,Urine Clear (Clear); Bilirubin,Urine Negative (Negative); Blood,Urine Negative (Negative); Color,Urine Yellow; Glucose,Urine (UA) Negative (Negative); Ketones,Urine Negative (Negative); Leukocyte Esterase,Urine Negative (Negative); Nitrite,Urine Negative (Negative); PH, Urine 5.5 (5.0-8.0); Protein,Urine Negative (Negative); Specific Gravity,Urine 1.021 (1.001-1.035); Urobilinogen,Urine <2.0 mg/dL (<2.0)
[2020-05-03 16:49] LABS: African American GFR (CKD) 104.7 (60.0-200.0); Albumin/Globulin Ratio 1.67 (1.60-3.17); Anion Gap 5.8 mmol/L (4.00-12.00); BUN/Creat Ratio 17.5 Ratio (12.00-20.00); Calcium 9.2 mg/dL (8.7-10.3); Carbon Dioxide 28.2 mmol/L (21.6-31.8); Chol/HDL Ratio 3.42; Globulin 2.4 g/dL (1.6-3.3); Non-African American GFR(CKD) 90.3 (60.0-200.0); Potassium 3.9 mmol/L (3.5-5.5); Total Bilirubin 0.9 mg/dL (0.3-1.2); Total Protein 6.4 g/dL (6.2-8.2)
[2020-05-03 16:56] LABS: T4, Free (Free Thyroxine) 1.3 ng/dL (0.80-1.80)
[2020-05-03 20:13] LABS: Hemoglobin A1C 5.3 % (4.0-6.0)
== END | disposition home or self-care (01) ==
LOC: LABWHC1 07:44
PROVIDERS: ATTEND Family Medicine
DX: Z00.00 Encounter for general adult medical examination without abnormal findings (principal); E66.01 Morbid (severe) obesity due to excess calories
CPT/HCPCS: 36415; 80053; 80061; 81003; 82306; 83036; 83735; 84439; 84443; 85025

== ENCOUNTER → 2020-08-12 | Outpatient (CLI) | payer MEDICAID ==
[2020-08-13 00:39] LABS: African American GFR (CKD) 103.9 (60.0-200.0); Anion Gap 7.4 mmol/L (4.00-12.00); BUN/Creat Ratio 22.5 Ratio (12.00-20.00); Calcium 9.5 mg/dL (8.7-10.3); Carbon Dioxide 26.6 mmol/L (21.6-31.8); Non-African American GFR(CKD) 89.7 (60.0-200.0); Potassium 4.1 mmol/L (3.5-5.5)
== END | disposition home or self-care (01) ==
LOC: LABWHC1 15:31
PROVIDERS: ATTEND Family Medicine
DX: I10 Essential (primary) hypertension (principal); E55.9 Vitamin D deficiency, unspecified
CPT/HCPCS: 36415; 80048; 82306

== ENCOUNTER → 2020-09-19 | Outpatient (CLI) | payer MEDICAID ==
--- NOTE | 2020-09-20 14:29 | MM ---
Reason for exam: screening (asymptomatic). Last mammogram was performed 1 year and 8 months ago. History: Family history of breast cancer in maternal grandmother. Physical Findings: A clinical breast exam by your physician is recommended on an annual basis and results should be correlated with mammographic findings. MG 3D Screening Mammo W/Cad Bilateral CC and MLO view(s) were taken. Prior study comparison: January 26, 2019, left breast MG 3d work up w/cad LT. January 24, 2019, bilateral MG 3d screening mammo w/cad. The breast tissue is heterogeneously dense. This may lower the sensitivity of mammography. Stable benign calcifications. There is no discrete abnormality. No significant changes when compared with prior studies. ASSESSMENT: Benign, BI-RAD 2 RECOMMENDATION: Routine screening mammogram of both breasts in 1 year.
== END | disposition home or self-care (01) ==
LOC: RADMAMWWP 08:39
PROVIDERS: ATTEND Obstetrics & Gynecology Obstetrics
DX: Z12.31 Encounter for screening mammogram for malignant neoplasm of breast (principal); Z80.3 Family history of malignant neoplasm of breast
CPT/HCPCS: 77063; 77067

== ENCOUNTER → 2021-03-07 | Outpatient (CLI) | payer MEDICAID ==
[2021-03-07 11:36] LABS: Amorphous Sediment,Urine Occasional /hpf; Appearance,Urine Cloudy (Clear); Bacteria,Urine Rare /hpf; Bilirubin,Urine Negative (Negative); Blood,Urine Negative (Negative); Color,Urine Yellow; Glucose,Urine (UA) Negative (Negative); Ketones,Urine Trace (Negative); Leukocyte Esterase,Urine Negative (Negative); Mucus,Urine Many /hpf; Nitrite,Urine Negative (Negative); PH, Urine 5.5 (5.0-8.0); Protein,Urine Trace (Negative); Specific Gravity,Urine 1.026 (1.001-1.035); Squamous Epithelial Cell,Urine 5 /hpf (0-4); Urobilinogen,Urine <2.0 mg/dL (<2.0); WBC,Urine 1 /hpf (0-5)
[2021-03-07 15:13] LABS: HGB 13.7 g/dL (12.0-15.0); MCH 28.8 pg (27.0-32.0); MCHC 32.6 g/dL (32.0-37.0); MCV 88.4 fL (80.0-97.0); Platelet Count 317 X 10*3/uL (140-440); RBC 4.75 X 10*6/uL (4.10-5.20); RDW 13.2 % (11.5-14.5); WBC 5.82 X 10*3/uL (4.50-10.00)
[2021-03-07 17:05] LABS: Hemoglobin A1C 4.7 % (4.0-6.0)
[2021-03-07 22:56] LABS: African American GFR (CKD) 90.1 (60.0-200.0); Anion Gap 9.3 mmol/L (4.00-12.00); BUN/Creat Ratio 18.89 Ratio (12.00-20.00); Calcium 9.3 mg/dL (8.7-10.3); Carbon Dioxide 24.7 mmol/L (21.6-31.8); Chol/HDL Ratio 3.8; LDL Cholesterol,Calculated 100.4 mg/dL (0.0-131.0); Magnesium 1.9 mg/dL (1.5-2.4); Non-African American GFR(CKD) 77.8 (60.0-200.0); VLDL Calculation 11.6 mg/dL (5.00-40.00)
== END | disposition home or self-care (01) ==
LOC: LABWHC1 10:12
PROVIDERS: ATTEND Family Medicine
DX: E66.01 Morbid (severe) obesity due to excess calories (principal); I10 Essential (primary) hypertension
CPT/HCPCS: 36415; 80048; 80061; 81001; 82306; 83036; 83735; 84460; 85027

== ENCOUNTER → 2021-09-29 | Outpatient (CLI) | payer MEDICAID ==
[2021-09-29 15:28] LABS: African American GFR (CKD) 103.2 (60.0-200.0); Anion Gap 12.2 mmol/L (10.00-18.00); BUN/Creat Ratio 20.25 Ratio (12.00-20.00); Blood Urea Nitrogen 16.2 mg/dL (9.0-27.0); Calcium 9.4 mg/dL (8.7-10.3); Carbon Dioxide 21.8 mmol/L (20.0-27.5); Potassium 4.7 mmol/L (3.5-5.5)
== END | disposition home or self-care (01) ==
LOC: LABWHC1 08:45
PROVIDERS: ATTEND Family Medicine
DX: I10 Essential (primary) hypertension (principal); E55.9 Vitamin D deficiency, unspecified
CPT/HCPCS: 36415; 80048; 82306

== ENCOUNTER → 2021-09-29 | Outpatient (CLI) | payer MEDICAID ==
--- NOTE | 2021-09-30 10:16 | MM ---
Reason for exam: screening (asymptomatic). Last mammogram was performed 1 year ago. History: Patient is nulliparous. Family history of breast cancer in maternal grandmother. Physical Findings: A clinical breast exam by your physician is recommended on an annual basis and results should be correlated with mammographic findings. MG 3D Screening Mammo W/Cad Bilateral CC and MLO view(s) were taken. Prior study comparison: September 19, 2020, bilateral MG 3d screening mammo w/cad. January 26, 2019, left breast MG 3d work up w/cad LT. The breast tissue is heterogeneously dense. This may lower the sensitivity of mammography. There are benign appearing round calcifications bilaterally. There is no discrete abnormality. ASSESSMENT: Benign, BI-RAD 2 RECOMMENDATION: Routine screening mammogram of both breasts in 1 year.
== END | disposition home or self-care (01) ==
LOC: RADMAMWWP 08:28
PROVIDERS: ATTEND Obstetrics & Gynecology Obstetrics
DX: Z12.31 Encounter for screening mammogram for malignant neoplasm of breast (principal); Z80.3 Family history of malignant neoplasm of breast
CPT/HCPCS: 77063; 77067

== ENCOUNTER → 2022-02-26 | Outpatient (CLI) | payer MEDICAID ==
--- NOTE | 2022-02-26 22:32 | US ---
EXAMINATION TYPE: US venous doppler duplex LE DATE OF EXAM: 02/26/2022 5:47 PM COMPARISON: NONE CLINICAL HISTORY: I89.0 Lymphedema bilateral lower. Bilateral leg edema for a few years, no h/o dvt SIDE PERFORMED: Bilateral TECHNIQUE: The lower extremity deep venous system is examined utilizing real time linear array sonog khalif with graded compression, doppler sonography and color-flow sonography. VESSELS IMAGED: Common Femoral Vein Deep Femoral Vein Greater Saphenous Vein * Femoral Vein Popliteal Vein Small Saphenous Vein * Proximal Calf Veins (* superficial vessels) Right Leg: Negative for DVT Left Leg: Negative for DVT Grayscale, color doppler, spectral doppler imaging performed of the deep veins of the bilateral lower extremities. There is normal flow, compressibility, vascular waveforms. IMPRESSION: No ultrasound evidence for acute DVT in either lower extremity.
== END | disposition home or self-care (01) ==
LOC: RADUSWWP 17:20
PROVIDERS: ATTEND Family Medicine
DX: I89.0 Lymphedema, not elsewhere classified (principal)
CPT/HCPCS: 93970

== ENCOUNTER → 2022-05-25 | Outpatient (CLI) | payer MEDICAID ==
[2022-05-25 17:58] LABS: HCT 40.7 % (37.2-46.3); HGB 13.2 g/dL (12.0-15.0); MCH 28.7 pg (27.0-32.0); MCHC 32.4 g/dL (32.0-37.0); MCV 88.5 fL (80.0-97.0); Mean Platelet Volume 11.3 fL (9.5-12.2); NRBC Per 100 WBC 0 /100 WBCS (0.0-0.0); Platelet Count 311 X 10*3/uL (140-440); RDW 13.2 % (11.5-14.5); WBC 6.42 X 10*3/uL (4.50-10.00)
[2022-05-25 18:17] LABS: ALT 18 U/L (8-44); AST 18 U/L (13-35); African American GFR (CKD) 103.2 (60.0-200.0); BUN/Creat Ratio 14.25 Ratio (12.00-20.00); Blood Urea Nitrogen 11.4 mg/dL (9.0-27.0); Calcium 9.2 mg/dL (8.7-10.3); Carbon Dioxide 24.1 mmol/L (20.0-27.5); Chloride 103 mmol/L (96-109); Chol/HDL Ratio 3.41 Ratio; Glucose 87 mg/dL (70-110); LDL Cholesterol,Calculated 97.5 mg/dL (0.0-131.0); Magnesium 2.3 mg/dL (1.5-2.4); Potassium 4.5 mmol/L (3.5-5.5); Sodium 136 mmol/L (135-145); VLDL Calculation 14.08 mg/dL (5.00-40.00)
== END | disposition home or self-care (01) ==
LOC: LABWHC1 12:04
PROVIDERS: ATTEND Family Medicine
DX: I10 Essential (primary) hypertension (principal); E66.01 Morbid (severe) obesity due to excess calories; E55.9 Vitamin D deficiency, unspecified
CPT/HCPCS: 36415; 80048; 80061; 82306; 83036; 83735; 84450; 84460; 85027

== ENCOUNTER → 2022-11-30 | Outpatient (CLI) | payer MEDICAID ==
[2022-11-30 16:11] LABS: Appearance,Urine Clear (Clear); Bilirubin,Urine Negative (Negative); Blood,Urine Negative (Negative); Color,Urine Yellow (Yellow); Ketones,Urine Negative (Negative); Nitrite,Urine Negative (Negative); PH, Urine 5.5 (5.0-8.0); Specific Gravity,Urine 1.021 (1.001-1.030); Urobilinogen,Urine 0.2 (0.2,1.0)
[2022-11-30 16:35] LABS: ALT 20 U/L (8-44); AST 17 U/L (13-35); African American GFR (CKD) 104.2 (60.0-200.0); Albumin 3.7 g/dL (3.8-4.9); Albumin/Globulin Ratio 1.79 (1.60-3.17); Alkaline Phosphatase 62 U/L (41-126); BUN/Creat Ratio 15.34 Ratio (12.00-20.00); Blood Urea Nitrogen 12.1 mg/dL (9.0-27.0); Calcium 8.8 mg/dL (8.7-10.3); Carbon Dioxide 26.6 mmol/L (20.0-27.5); Chloride 107 mmol/L (96-109); Chol/HDL Ratio 3.28 Ratio; Globulin 2.1 g/dL (1.6-3.3); Glucose 94 mg/dL (70-110); LDL Cholesterol,Calculated 97.4 mg/dL (0.0-131.0); Non-African American GFR(CKD) 89.9 (60.0-200.0); Potassium 4.3 mmol/L (3.5-5.5); Sodium 143 mmol/L (135-145); Total Protein 5.8 g/dL (6.2-8.2); VLDL Calculation 13.84 mg/dL (5.00-40.00)
[2022-11-30 16:59] LABS: HCT 39.3 % (37.2-46.3); HGB 13.1 g/dL (12.0-15.0); MCH 28.7 pg (27.0-32.0); MCHC 33.3 g/dL (32.0-37.0); Mean Platelet Volume 10.8 fL (9.5-12.2); NRBC Per 100 WBC 0 /100 WBCS (0.0-0.0); Platelet Count 325 X 10*3/uL (140-440); RBC 4.57 X 10*6/uL (4.10-5.20); RDW 13.9 % (11.5-14.5); WBC 7.99 X 10*3/uL (4.50-10.00)
[2022-12-01 14:14] LABS: Magnesium 2.3 mg/dL (1.5-2.4)
== END | disposition home or self-care (01) ==
LOC: LABWHC1 09:48
PROVIDERS: ATTEND Family Medicine
DX: Z00.00 Encounter for general adult medical examination without abnormal findings (principal); E55.9 Vitamin D deficiency, unspecified; E66.01 Morbid (severe) obesity due to excess calories
CPT/HCPCS: 36415; 80053; 80061; 81003; 82306; 83036; 83735; 84439; 84443; 85027

== ENCOUNTER → 2023-03-29 | Outpatient (CLI) | payer MEDICAID ==
--- NOTE | 2023-03-30 11:17 | CA ---
Transthoracic Echo Report Name: Akiko Miramontes Age: 47 Gender: F : 1975 Exam Date: 03/29/2023 12:59 Exam Location: [place] [facility] Ht (in): 69 Wt (lb): 300 Ordering Physician: Sukhwinder Benitez DO Attending/Referring Phys: Indian Blanket Weaver Sera Taylor RDCS Procedure CPT: Indications: I89.0 LYMPHEDEMA Cardiac Hx: Technical Quality: Fair Contrast 1: Total Dose (mL): Contrast 2: Total Dose (mL): MEASUREMENTS (Male / Female) Normal Values 2D ECHO LV Diastolic Diameter PLAX 4.8 cm 4.2 - 5.9 / 3.9 - 5.3 cm LV Systolic Diameter PLAX 3.2 cm IVS Diastolic Thickness 1.0 cm 0.6 - 1.0 / 0.6 - 0.9 cm LVPW Diastolic Thickness 1.1 cm 0.6 - 1.0 / 0.6 - 0.9 cm LV Relative Wall Thickness 0.4 RV Internal Dim ED PLAX 3.4 cm LA Volume 64.0 cm??? 18 - 58 / 22 - 52 cm??? M-MODE Aortic Root Diameter MM 2.5 cm LA Systolic Diameter MM 4.1 cm LA Ao Ratio MM 1.7 AV Cusp Separation MM 2.4 cm DOPPLER AV Peak Velocity 139.6 cm/s AV Peak Gradient 7.8 mmHg AV Mean Velocity 92.7 cm/s AV Mean Gradient 3.9 mmHg AV Velocity Time Integral 26.5 cm LVOT Peak Velocity 98.8 cm/s LVOT Peak Gradient 3.9 mmHg LVOT Velocity Time Integral 21.1 cm MV Area PHT 2.1 cm??? Mitral E Point Velocity 74.4 cm/s Mitral A Point Velocity 87.2 cm/s Mitral E to A Ratio 0.9 MV Deceleration Time 366.2 ms MV E' Velocity 11.2 cm/s Mitral E to MV E' Ratio 6.7 FINDINGS Left Ventricle Normal Left ventricular size, wall thickness, systolic function with no obvious regional wall motion abnormalities. Normal Left ventricular diastolic filling pattern. Left ventricular ejection fraction is estimated at 55-60 %. Right Ventricle Normal right ventricular size and function. Right ventricular systolic pressure within normal limits. Right Atrium Normal right atrial size. Left Atrium Midley increased left atrial volume. Mitral Valve Structurally normal mitral valve. Mild mitral regurgitation. Aortic Valve Trileaflet aortic valve. No aortic valve stenosis or regurgitation. Tricuspid Valve Structurally normal tricuspid valve. Trace tricuspid regurgitation. Pulmonic Valve Structurally normal pulmonic valve. Trace pulmonic regurgitation. Pericardium No pericardial effusion. Aorta Normal size aortic root and proximal ascending aorta. CONCLUSIONS Normal LV size and systolic function. Mild mitral and tricuspid regurgitation. No pericardial effusion no pulmonary hypertension Previewed by: Dr. Mariana Joiner MD (Electronically Signed) Final Date: 30 March 2023 11:17
== END | disposition home or self-care (01) ==
LOC: RADECHMAIN 12:48
PROVIDERS: ATTEND Family Medicine
DX: I08.1 Rheumatic disorders of both mitral and tricuspid valves (principal); I89.0 Lymphedema, not elsewhere classified
CPT/HCPCS: 93306

== ENCOUNTER → 2023-09-27 | Outpatient (CLI) | payer MEDICAID ==
--- NOTE | 2023-09-27 11:32 | XR ---
EXAMINATION TYPE: XR lumbosacral spine min 4V DATE OF EXAM: 09/27/2023 11:25 AM CLINICAL INDICATION:Female, 48 years old with history of [id number] STRAIN OF MUSCLE, FASCIA AND TENDON OF LOWER BACK; PHH COMPARISON: None TECHNIQUE: XR lumbosacral spine min 4V - Frontal, lateral , bilateral oblique and coned in L5-S1 late ral views of the spine. FINDINGS: No evidence of any acute osseous pathology. No evidence of loss of vertebral body height i s seen. There is normal alignment of the lumbar vertebral bodies. Mild scattered disc space narrowing . Multilevel marginal osteophyte formation throughout the visualized spine. There is facet joint arth ropathy throughout the spine. Scattered at least mild neural foraminal stenosis worse at L5-S1. Right upper quadrant cholecystectomy clips. Remote injury to the L2 spinous process. IMPRESSION: 1. No acute fracture. 2. Mild multilevel disc degeneration.
[2023-09-27 11:57] LABS: Appearance,Urine Cloudy (Clear); Bacteria,Urine Moderate /hpf; Bilirubin,Urine Negative (Negative); Blood,Urine Negative (Negative); Color,Urine Colorless; Glucose,Urine (UA) Negative (Negative); Ketones,Urine Negative (Negative); Leukocyte Esterase,Urine Negative (Negative); Mucus,Urine Occasional /hpf; Nitrite,Urine Negative (Negative); Protein,Urine Negative (Negative); RBC,Urine <1 /hpf (0-5); Specific Gravity,Urine 1.012 (1.001-1.035); Squamous Epithelial Cell,Urine 5 /hpf (0-4); Urobilinogen,Urine <2.0 mg/dL (<2.0); WBC,Urine 1 /hpf (0-5)
[2023-09-27 15:57] LABS: ALT 41 U/L (8-44); AST 23 U/L (13-35); Albumin 4.4 g/dL (3.8-4.9); Albumin/Globulin Ratio 1.52 Ratio (1.60-3.17); Alkaline Phosphatase 87 U/L (41-126); BUN/Creat Ratio 16.14 Ratio (12.00-20.00); Blood Urea Nitrogen 11.3 mg/dL (9.0-27.0); Calcium 9.9 mg/dL (8.7-10.3); Carbon Dioxide 25.7 mmol/L (21.6-31.8); Chloride 102 mmol/L (96-109); Chol/HDL Ratio 3.36 Ratio; Globulin 2.9 g/dL (1.6-3.3); Glucose 94 mg/dL (70-110); LDL Cholesterol,Calculated 126.2 mg/dL (0.0-131.0); Potassium 4.1 mmol/L (3.5-5.5); Sodium 140 mmol/L (135-145); T4, Free (Free Thyroxine) 1.23 ng/dL (0.80-1.80); Total Bilirubin 0.4 mg/dL (0.3-1.2); Total Protein 7.3 g/dL (6.2-8.2); VLDL Calculation 13.48 mg/dL (5.00-40.00)
[2023-09-27 15:59] LABS: HCT 43.8 % (37.2-46.3); MCH 28.3 pg (27.0-32.0); MCV 88.7 FL (80.0-97.0); Mean Platelet Volume 11.1 FL (9.5-12.2); NRBC Per 100 WBC 0 X 10*3/uL (0.00-0.01); Platelet Count 329 X 10*3/uL (140-440); RBC 4.94 X 10*6/uL (4.10-5.20); RDW 13.7 % (11.5-14.5); WBC 7.31 X 10*3/uL (4.50-10.00)
== END | disposition home or self-care (01) ==
LOC: LABWHC1 10:25
PROVIDERS: ATTEND Family Medicine
DX: Z00.00 Encounter for general adult medical examination without abnormal findings (principal); E66.01 Morbid (severe) obesity due to excess calories; S39.012A Strain of muscle, fascia and tendon of lower back, initial encounter; Y99.9 Unspecified external cause status
CPT/HCPCS: 36415; 72110; 80053; 80061; 81001; 82306; 83036; 84439; 84443; 85027

== ENCOUNTER → 2023-10-11 | Outpatient (CLI) | payer MEDICAID ==
--- NOTE | 2023-10-12 22:11 | MM ---
Reason for Exam: Screening (asymptomatic). Last screening mammogram was performed 12 month(s) ago. Patient History: Menarche at age 13. Patient has no children. Hysterectomy at age 44. Maternal grandmother had breast cancer. Last menstrual period: Risk Values: Nanette 5 year model risk: 1.0%. NCI Lifetime model risk: 10.3%. Prior Study Comparison: 09/19/2020 Bilateral Screening Mammogram, [facility]. 09/29/2021 Bilateral Screening Mammogram, [facility]. 10/08/2022 Bilateral MG 3D screening mammo w/cad, [facility]. Tissue Density: The breast tissue is heterogeneously dense. This may lower the sensitivity of mammography. Findings: Analyzed By CAD. There is no suspicious group of microcalcifications or new suspicious mass in either breast. Overall Assessment: Negative, BI-RAD 1 Management: Screening Mammogram of both breasts in 1 year. . Patient should continue monthly self-breast exams. A clinical breast exam by your physician is recommended on an annual basis. This exam should not preclude additional follow-up of suspicious palpable abnormalities. Note on Nanette scores and lifetime risk: 1. A Nanette score greater than 3% is considered moderate risk. If this is the case, consider specialist referral to assess eligibility for a risk reducing agent. 2. If overall lifetime risk for the development of breast cancer is 20% or higher, the patient may qualify for future screening with alternating mammogram and breast MRI. Electronically signed and approved by: Jay Elam M.D. Radiologist
== END | disposition home or self-care (01) ==
LOC: RADMAMWWP 09:48
PROVIDERS: ATTEND Obstetrics & Gynecology Obstetrics
DX: Z12.31 Encounter for screening mammogram for malignant neoplasm of breast (principal); Z80.3 Family history of malignant neoplasm of breast
CPT/HCPCS: 77063; 77067

== ENCOUNTER 2024-01-04 09:20 | Day surgery (SDC) | payer MEDICAID ==
[~2024-01-04 09:20] MED LIST changes: -DEXAMETHASONE SOD PHOSPHATE 10 MG/ML 1 ML VIAL IV ONE; -HEPARIN SODIUM,PORCINE 5,000 UNIT/ML 1 ML VIAL SQ ONE; -LACTATED RINGERS 1,000 ML IV SCH; +LIDOCAINE 1% (10MG/ML) FOR IV START INTRADERMA PRN; -LIDOCAINE 1% 20 ML VIAL (10MG/ML) FOR IV START INTRADERMA PRN; -ONDANSETRON 4 MG/2 ML VIAL IVP ONE; -ceFAZolin 3 GM in SODIUM CHLORIDE 0.9% 100 ML IVPB ONE; -fentaNYL (PF) 50 MCG/ML 2 ML AMP IV PRN
[2024-01-04] MEDS: LACTATED RINGERS 1,000 ML IV SCH (09:51)
[2024-01-04] MEDS ORDERED: fentaNYL (PF) 50 MCG/ML 2 ML AMP ONE (09:55)
[2024-01-04] MEDS ORDERED: LIDOCAINE 1% INJ 10MG/ML (20 ML MDV) ONE (09:55)
[2024-01-04] MEDS ORDERED: PROPOFOL 10 MG/ML 20 ML VIAL IV ONE (09:55)
--- NOTE | 2024-01-04 09:57 | P.GSHP ---
History of Present Illness H&P Date: 01/04/24 Chief Complaint: Colon cancer screening 48-year-old female here for colonoscopy. She has not had one previously. No bowel complaints. No family history of colon cancer. Past Medical History Past Medical History: Hypertension, Renal Disease Additional Past Medical History / Comment(s): Routine colonoscopy, past gall stones/surgery, kidney stone, lower back pain radiating to rt buttocks, herniated disc History of Any Multi-Drug Resistant Organisms: None Reported Past Surgical History: Cholecystectomy, Hysterectomy, Orthopedic Surgery Additional Past Surgical History / Comment(s): Right knee arthroscopy in 1992. Pt states she has also had lasik eye surgey in 2004. Past Anesthesia/Blood Transfusion Reactions: No Reported Reaction Smoking Status: Never smoker - Past Family History Mother Family Medical History: No Reported History Medications and Allergies Home Medications Medication Instructions Recorded Confirmed Type lisinopriL [Zestril] 20 mg PO QAM 09/28/17 01/04/24 History Ibuprofen [Motrin] 600 mg PO Q6HR PRN #20 tab 12/06/21 12/29/23 Rx Ergocalciferol [Vitamin D2 (1250 1,250 mcg PO TU 12/29/23 01/04/24 History Mcg = 65133 Iu)] hydroCHLOROthiazide 12.5 mg PO QAM 12/29/23 01/04/24 History Allergies Allergy/AdvReac Type Severity Reaction Status Date / Time No Known Allergies Allergy Verified 01/04/24 09:43 Surgical - Exam Vital Signs Temp Pulse Resp BP Pulse Ox 98.4 F 81 16 131/74 98 01/04/24 09:42 01/04/24 09:42 01/04/24 09:42 01/04/24 09:42 01/04/24 09:42 Physical exam: General: Well-developed, well-nourished HEENT: Normocephalic, sclerae nonicteric Abdomen: Nontender, nondistended Extremities: No edema Neuro: Alert and oriented Assessment and Plan (1) Colon cancer screening Narrative/Plan: Will proceed with colonoscopy at this time. Current Visit: Yes Status: Acute Code(s): Z12.11 - ENCOUNTER FOR SCREENING FOR MALIGNANT NEOPLASM OF COLON SNOMED Code(s): 497537309
--- NOTE | 2024-01-04 10:09 | P.PCN ---
Date of Procedure: 01/04/24 Procedure(s) Performed: PREOPERATIVE DIAGNOSIS: Colon cancer screening POSTOPERATIVE DIAGNOSIS: Diverticulosis PROCEDURE: Colonoscopy ANESTHESIA: MAC SURGEON: Robert Hidalgo M.D. SPECIMENS: None ENDOSCOPIC PROCEDURE: The patient was placed on the endoscopy table in the left decubitus position. The Olympus colonoscope was inserted into the anus and passed under direct visualization to the base of the cecum. The appendiceal orifice was visualized. From that point the scope was slowly withdrawn inspe cting all surfaces carefully. There were no neoplastic inflammatory or polypoid lesions throughout the cecum, ascending, transverse, descending, sigmoid and rectum. There was mild left-sided diverticulosis noted. Digital rectal examination was normal. The patient was taken to the recovery room in stable condition per anesthesia guidelines. RECOMMENDATIONS: Resume diet. Repeat colonoscopy 10 years.
[2024-01-04 10:17] VITALS: RESP 16; TEMP 98.4
[2024-01-04 11:15] VITALS: BP 118/74; PULSE 69
== END 2024-01-04 10:45 | disposition home or self-care (01) ==
LOC: ORWHC2ENDO 09:20
PROVIDERS: ATTEND Surgery
DX: Z12.11 Encounter for screening for malignant neoplasm of colon (principal); K57.30 Diverticulosis of large intestine without perforation or abscess without bleeding; I10 Essential (primary) hypertension; E66.01 Morbid (severe) obesity due to excess calories; Z90.710 Acquired absence of both cervix and uterus; Z90.49 Acquired absence of other specified parts of digestive tract; Z79.899 Other long term (current) drug therapy; Z87.442 Personal history of urinary calculi; Z68.41 Body mass index [BMI] 40.0-44.9, adult
CPT/HCPCS: 45378; J2001; J3010; J2704

== ENCOUNTER → 2024-06-28 | Outpatient (CLI) | payer MEDICAID ==
[2024-06-28 15:28] LABS: Blood Urea Nitrogen 19.6 mg/dL (9.0-27.0); Calcium 9.5 mg/dL (8.7-10.3); Carbon Dioxide 24.2 mmol/L (21.6-31.8); Chloride 105 mmol/L (96-109); Glucose 93 mg/dL (70-110); Magnesium 2.1 mg/dL (1.5-2.4); Potassium 4.7 mmol/L (3.5-5.5); Sodium 141 mmol/L (135-145)
== END | disposition home or self-care (01) ==
LOC: LABWHC1 11:02
PROVIDERS: ATTEND Family Medicine
DX: E55.9 Vitamin D deficiency, unspecified (principal); E66.01 Morbid (severe) obesity due to excess calories; I10 Essential (primary) hypertension
CPT/HCPCS: 36415; 80048; 82306; 83036; 83735

== ENCOUNTER 2024-11-10 02:33 | Emergency (ER) | payer MEDICAID ==
[2024-11-10] MEDS: lisinopriL 20 MG TAB PO STA (03:33)
[2024-11-10] MEDS: ALBUTEROL NEBULIZED 2.5 MG/3 ML INHALATION STA (03:46)
[2024-11-10] MEDS: ACETYLCYSTEINE 800 MG/4 ML VIAL INHALATION STA (03:46)
--- NOTE | 2024-11-10 04:45 | ED ---
URI HPI - General Chief Complaint: Upper Respiratory Infection Stated Complaint: throat pain Time Seen by Provider: 11/10/24 02:58 Source: patient Mode of arrival: ambulatory Limitations: no limitations - History of Present Illness Initial Comments: Patient is 49-year-old woman who presents with complaint that she is coughing frequently, has become hoarse and now has some thick sputum caught along the left side of her pharynx/upper airway. She states that this is causing prolonged coughing spell and hoarseness. Patient has used home inhaled medica tions without much relief. No fevers. No dyspnea except when the coughing spell occurs. No chest pain MD Complaint: cough, nasal congestion -: days(s) Improves With: nothing Worsens With: nothing Associated Symptoms: nasal congestion Treatments Prior to Arrival: none - Related Data Home Medications Medication Instructions Recorded Confirmed lisinopriL [Zestril] 20 mg PO QAM 09/28/17 01/04/24 Ergocalciferol [Vitamin D2 (1250 1,250 mcg PO TU 12/29/23 01/04/24 Mcg = 35099 Iu)] hydroCHLOROthiazide 12.5 mg PO QAM 12/29/23 01/04/24 Previous Rx's Medication Instructions Recorded Ibuprofen [Motrin] 600 mg PO Q6HR PRN #20 tab 12/06/21 Albuterol Nebulized [Ventolin 2.5 mg INHALATION Q4H 8 Days #150 11/10/24 Nebulized] ml Allergies Allergy/AdvReac Type Severity Reaction Status Date / Time No Known Allergies Allergy Verified 11/10/24 02:37 Review of Systems ROS Statement: Those systems with pertinent positive or pertinent negative responses have been documented in the HPI. ROS Other: All systems not noted in ROS Statement are negative. Constitutional: Denies: fever, chills ENT: Reports: congestion Respiratory: Reports: as per HPI, cough, wheezes. Denies: dyspnea, hemoptysis Cardiovascular: Denies: chest pain, palpitations, edema Gastrointestinal: Denies: abdominal pain, vomiting Skin: Denies: rash Past Medical History Past Medical History: Hypertension Additional Past Medical History / Comment(s): gall stones, kidney stone, lower back pain radiating to rt buttocks, herniated disc, hysterectomy, pt states she had her gall bladder removed in 02/2019. History of Any Multi-Drug Resistant Organisms: None Reported Past Surgical History: Orthopedic Surgery Additional Past Surgical History / Comment(s): Right knee arthroscopy in 1992. Pt states she has also had lasic eye surgey in 2004. Past Anesthesia/Blood Transfusion Reactions: No Reported Reaction Past Psychological History: No Psychological Hx Reported Smoking Status: Never smoker - Past Family History Mother Family Medical History: No Reported History General Exam Limitations: no limitations General appearance: alert, in no apparent distress Head exam: Present: atraumatic, normocephalic Eye exam: Present: normal appearance. Absent: scleral icterus, conjunctival injection ENT exam: Present: normal oropharynx Neck exam: Present: normal inspection, full ROM. Absent: tenderness, meningismus, lymphadenopathy Respiratory exam: Present: wheezes. Absent: respiratory distress, rales, rhonchi, stridor, accessory muscle use Cardiovascular Exam: Present: regular rate, normal rhythm, normal heart sounds. Absent: systolic murmur, diastolic murmur, rubs, gallop Extremities exam: Present: normal inspection Neurological exam: Present: alert Skin exam: Present: warm, dry, intact, normal color. Absent: rash Course Vital Signs 11/10/24 11/10/24 11/10/24 02:35 03:48 04:01 Temperature 98.3 F Pulse Rate 85 84 88 Respiratory 18 Rate Blood Pressure 174/96 O2 Sat by Pulse 99 Oximetry 11/10/24 04:48 Temperature 97.8 F Pulse Rate 85 Respiratory 19 Rate Blood Pressure 129/84 O2 Sat by Pulse 97 Oximetry Medical Decision Making - Medical Decision Making Was pt. sent in by a medical professional or institution (, PA, PRE PAROLE COUNSELING AIDE, urgent care, hospital, or shelter...) When possible be specific @ -[No] Did you speak to anyone other than the patient for history (EMS, parent, family, police, friend...)? What history was obtained from this source @ -[No] Did you review nursing and triage notes (agree or disagree)? Why? @ -[I reviewed and agree with nursing and triage notes] Were old charts reviewed (outside hosp., previous admission, EMS record, old EKG, old radiological studies, urgent care reports/EKG's, shelter records)? Report findings @ -[No old charts were reviewed] Differential Diagnosis (chest pain, altered mental status, abdominal pain women, abdominal pain men, vaginal bleeding, weakness, fever, dyspnea, syncope, headache, dizziness, GI bleed, back pain, seizure, CVA, palpatations, mental health, musculoskeletal)? @ -[not applicable] EKG interpreted by me (3pts min.). @ -[As above] X-rays interpreted by me (1pt min.). @ -[None done] CT interpreted by me (1pt min.). @ -[None done] U/S interpreted by me (1pt. min.). @ -[None done] What testing was considered but not performed or refused? (CT, X-rays, U/S, labs)? Why? @ -[Chest x-ray was considered, but the patient not having fever, her symptoms had markedly improved and on exam wheezing has markedly improved following treatment. What meds were considered but not given or refused? Why? @ -[None] Did you discuss the management of the patient with other professionals (professionals i.e. , PA, PRE PAROLE COUNSELING AIDE, lab, RT, psych nurse, social media editor, customer account technician, teacher, chief fundraising officer, case worker)? Give summary @ -[No] Was smoking cessation discussed for >3mins.? @ -[No] Was critical care preformed (if so, how long)? @ -[No] Were there social determinants of health that impacted care today? How? (Homelessness, low income, unemployed, alcoholism, drug addiction, transportation, low edu. Level, literacy, decrease access to med. care, assisted, rehab)? @ -[No] Was there de-escalation of care discussed even if they declined (Discuss DNR or withdrawal of care, Hospice)? DNR status @ -[No] What co-morbidities impacted this encounter? (DM, HTN, Smoking, COPD, CAD, Cancer, CVA, ARF, Chemo, Hep., AIDS, mental health diagnosis, sleep apnea, morbid obesity)? @ -hypertension Was patient admitted / discharged? Hospital course, mention meds given and route, prescriptions, significant lab abnormalities, going to OR and other pertinent info. @ -[Patient is 49-year-old woman presenting with history and physical consistent with acute bronchitis. The patient had treatment and was feeling much better and wanted to go home. Discussed appropriate further care and follow-up as well as return parameters Undiagnosed new problem with uncertain prognosis? @ -[No] Drug Therapy requiring intensive monitoring for toxicity (Heparin, Nitro, Insulin, Cardizem)? @ -[No] Were any procedures done? @ -[No] Diagnosis/symptom? @ -[Acute bronchitis Acute, or Chronic, or Acute on Chronic? @ -[Acute Uncomplicated (without systemic symptoms) or Complicated (systemic symptoms)? @ -[Uncomplicated Side effects of treatment? @ -[No] Exacerbation, Progression, or Severe Exacerbation? @ -[No] Poses a threat to life or bodily function? How? (Chest pain, [place], [place], pneumonia, PE, COPD, DKA, ARF, appy, cholecystitis, CVA, Diverticulitis, Homicidal, Suicidal, threat to staff... and all critical care pts) @ -[No] All treatments are based on ideal body weight as in ED triage Disposition Clinical Impression: Bronchitis Disposition: HOME SELF-CARE Condition: Good Instructions (If sedation given, give patient instructions): Acute Bronchitis (ED) Prescriptions: Albuterol Nebulized [Ventolin Nebulized] 2.5 mg INHALATION Q4H 8 Days #150 ml Is patient prescribed a controlled substance at d/c from ED?: No Referrals: Sukhwinder Benitez DO [Primary Care Provider] - 1-2 days
[2024-11-10 04:49] VITALS: BP 129/84; PULSE 85; RESP 19; TEMP 97.8
== END 2024-11-10 04:48 | disposition home or self-care (01) ==
LOC: EC 02:33
DX: J20.9 Acute bronchitis, unspecified (principal)
CPT/HCPCS: 94640; 99283

== ENCOUNTER → 2024-12-26 | Outpatient (CLI) | payer MEDICAID ==
--- NOTE | 2024-12-26 10:03 | MM ---
Reason for Exam: Screening (asymptomatic). Last mammogram was performed 1 year(s) and 3 month(s) ago. Patient History: Menarche at age 13. Patient has no children. Hysterectomy at age 43. Postmenopausal. Maternal grandmother had breast cancer. Risk Values: Nanette 5 year model risk: 1.0%. NCI Lifetime model risk: 10.2%. Prior Study Comparison: 10/14/2017 Bilateral Screening Mammogram, [facility]. 01/24/2019 Bilateral Screening Mammogram, [facility]. 01/26/2019 Left Diagnostic Mammogram, [facility]. 09/19/2020 Bilateral Screening Mammogram, [facility]. 09/29/2021 Bilateral Screening Mammogram, [facility]. 10/08/2022 Bilateral MG 3D screening mammo w/cad, [facility]. 10/11/2023 Bilateral MG 3D screening mammo w/cad, [facility]. Tissue Density: The breasts are heterogeneously dense, which may obscure small masses. Findings: Analyzed By CAD. Right breast: There is no suspicious group of microcalcifications or new suspicious mass. Left breast: There is no suspicious group of microcalcifications or new suspicious mass. Overall Assessment: Negative, BI-RAD 1 Management: Screening Mammogram of both breasts in [address] [facility] will attempt to contact patient to return for supplemental views and ultrasound if indicated. Patient should continue monthly self-breast exams. A clinical breast exam by your physician is recommended on an annual basis. This exam should not preclude additional follow-up of suspicious palpable abnormalities. Note on Nanette scores and lifetime risk: 1. A Nanette score greater than 3% is considered moderate risk. If this is the case, consider specialist referral to assess eligibility for a risk reducing agent. 2. If overall lifetime risk for the development of breast cancer is 20% or higher, the patient may qualify for future screening with alternating mammogram and breast MRI. [facility], , 12/26/2024 9:59 AM. Electronically signed and approved by: Matthew Brady DO
[2024-12-26 15:09] LABS: HCT 45.5 % (37.2-46.3); HGB 14.7 g/dL (12.0-15.0); MCH 28.2 pg (27.0-32.0); MCHC 32.3 g/dL (32.0-37.0); MCV 87.2 FL (80.0-97.0); Mean Platelet Volume 10.6 FL (9.5-12.2); NRBC Per 100 WBC 0 X 10*3/uL (0.00-0.01); Platelet Count 314 X 10*3/uL (140-440); RBC 5.22 X 10*6/uL (4.10-5.20); WBC 7.39 X 10*3/uL (4.50-10.00)
[2024-12-26 15:18] LABS: ALT 18 U/L (8-44); AST 15 U/L (13-35); Albumin/Globulin Ratio 1.54 Ratio (1.60-3.17); Alkaline Phosphatase 78 U/L (41-126); Blood Urea Nitrogen 17.2 mg/dL (9.0-27.0); Calcium 9.4 mg/dL (8.7-10.3); Carbon Dioxide 20.3 mmol/L (21.6-31.8); Chloride 106 mmol/L (96-109); Chol/HDL Ratio 3.59 Ratio; Globulin 2.6 g/dL (1.6-3.3); Glucose 94 mg/dL (70-110); Potassium 4.5 mmol/L (3.5-5.5); Sodium 141 mmol/L (135-145); Total Bilirubin 0.4 mg/dL (0.3-1.2); Total Protein 6.6 g/dL (6.2-8.2)
[2024-12-26 19:20] LABS: Appearance,Urine Clear (Clear); Bilirubin,Urine Negative (Negative); Blood,Urine Negative (Negative); Color,Urine Yellow (Yellow); Ketones,Urine Negative (Negative); Nitrite,Urine Negative (Negative); Specific Gravity,Urine 1.018 (1.001-1.030); Urobilinogen,Urine 0.2 E.U./DL
== END | disposition home or self-care (01) ==
LOC: RADMAMWWP 08:53
PROVIDERS: ATTEND Obstetrics & Gynecology Obstetrics
DX: Z12.31 Encounter for screening mammogram for malignant neoplasm of breast (principal); R92.333 Mammographic heterogeneous density, bilateral breasts; Z78.0 Asymptomatic menopausal state; Z80.3 Family history of malignant neoplasm of breast; Z00.00 Encounter for general adult medical examination without abnormal findings
CPT/HCPCS: 77063; 77067; 80053; 80061; 81003; 82306; 83036; 84443; 85027